=== PATIENT | female | born 1955 | race American Indian/Alaskan Native ===

== ENCOUNTER 2016-06-18 09:30 | Outpatient (CLI) | payer BC ==
[2016-06-18] MEDS ORDERED: NACL ONE ×2 (10:40→11:49)
--- NOTE | 2016-06-19 09:47 | Cat Scan Report ---
CT ABDOMEN WITH AND WITHOUT CONTRAST HISTORY: Hepatitis C, elevated liver function tests. TECHNIQUE: Helical CT before and after IV contrast. Triple phase liver protocol. Sagittal and coronal reformatted images. FINDINGS: Correlation is made with a right upper quadrant ultrasound performed 12/27/15. Sclerotic changes in the liver are also identified on CT. There is mild diffuse surface nodularity and mild enlargement of the left hepatic lobe. There is no evidence for abnormal enhancement within the liver following IV contrast. Portal venous system and hepatic veins are patent. The spleen is normal size and contour measuring 11.8 cm. No varicosities or ascites are appreciated. Two gallstones are noted within the gallbladder. No biliary dilatation or inflammation. The pancreas is normal in size and contour. There are rounded calcifications in the vicinity of the pancreatic tail or splenic hilum. It is unclear if this represents a small pseudocyst or a splenic artery aneurysm. Overall it has a benign appearance. This appears grossly unchanged since the MR abdomen with and without contrast performed in 2011. The kidneys, adrenal glands, aorta, bowel and visualized bowel loops are unremarkable. No bulky adenopathy, free air or acute inflammation. IMPRESSION: Mild to moderate cirrhotic changes in the liver. No suspicious liver masses appreciated. No change in the complex cystic lesion near the pancreatic tail or splenic hilum. 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 Cholelithiasis.
== END 2016-06-18 09:31 | disposition home or self-care (01) ==
LOC: CT 09:30
PROVIDERS: ATTEND Internal Medicine Gastroenterology
DX: B19.20 Unspecified viral hepatitis C without hepatic coma (principal); K74.60 Unspecified cirrhosis of liver; K80.20 Calculus of gallbladder without cholecystitis without obstruction
CPT/HCPCS: 74170; Q9967

== ENCOUNTER 2016-07-16 11:58 | Outpatient (CLI) | payer BC ==
[2016-07-16 12:28] LABS: Hemoglobin 13.1 gm/dl (10.1-14.3); Mean Corpuscular HGB Conc 32 % (30-34); Mean Corpuscular Hemoglobin 27 pg (28-32); Mean Corpuscular Volume 84 fl (79-97); Platelet Count 170 K/mm3 (140-440); Red Blood Count 4.87 M/mm3 (3.65-5.03); Red Cell Distribution Width 14.7 % (13.2-15.2); White Blood Count 9.2 K/mm3 (4.5-11.0)
[2016-07-16 13:47] LABS: Potassium TNR mmol/L (3.6-5.0)
[2016-07-16 13:48] LABS: Alanine Aminotransferase TNR units/L (7-56)
[2016-07-16 13:49] LABS: Cholesterol TNR mg/dL (50-199); HDL Cholesterol TNR mg/dL (40-59); LDL Cholesterol,Direct TNR mg/dL (50-130); Triglycerides TNR mg/dL (2-149)
[2016-07-17 11:40] LABS: Anion Gap TNR mmol/L; BUN/Creatinine Ratio TNR; Blood Urea Nitrogen TNR mg/dL (7-17); Carbon Dioxide TNR mmol/L (22-30); Chloride TNR mmol/L (98-107)
[2016-07-17 11:41] LABS: Albumin TNR g/dL (3.9-5); Albumin/Globulin Ratio TNR %; Alkaline Phosphatase TNR units/L (35-129); Bilirubin,Total TNR mg/dL (0.1-1.2); Calcium TNR mg/dL (8.4-10.2); Glucose TNR mg/dL (65-100); Total Protein TNR g/dL (6.3-8.2)
[2016-07-17 11:46] LABS: Sodium TNR mmol/L (137-145)
== END 2016-07-16 11:59 | disposition home or self-care (01) ==
LOC: LAB 11:58
PROVIDERS: ATTEND Internal Medicine
DX: E11.65 Type 2 diabetes mellitus with hyperglycemia (principal)
CPT/HCPCS: 36415; 80053; 80061; 83036; 84443; 85027

== ENCOUNTER 2016-12-06 08:49 | Inpatient (IN) | payer BC ==
[2016-12-06 09:30] LABS: Basophils % (Auto) 0.5 % (0.0-1.8); Eosinophils % (Auto) 2.3 % (0.0-4.3); Hematocrit 35.8 % (30.3-42.9); Hemoglobin 11.8 gm/dl (10.1-14.3); Mean Corpuscular HGB Conc 33 % (30-34); Mean Corpuscular Hemoglobin 27 pg (28-32); Mean Corpuscular Volume 82 fl (79-97); Platelet Count 175 K/mm3 (140-440); Red Blood Count 4.36 M/mm3 (3.65-5.03); Red Cell Distribution Width 14.5 % (13.2-15.2); White Blood Count 9.2 K/mm3 (4.5-11.0)
[2016-12-06 09:46] LABS: Anion Gap 19 mmol/L; BUN/Creatinine Ratio 18.75; Blood Urea Nitrogen 15 mg/dL (7-17); Calcium 9.1 mg/dL (8.4-10.2); Carbon Dioxide 21 mmol/L (22-30); Chloride 102.8 mmol/L (98-107); Glucose 117 mg/dL (65-100); Potassium 4.5 mmol/L (3.6-5.0); Sodium 138 mmol/L (137-145)
--- NOTE | 2016-12-06 11:21 | Emergency Department Report ---
ED Chest Pain HPI - General Chief Complaint: Chest Pain Stated Complaint: CHEST PAIN/ORLIN Time Seen by Provider: 12/06/16 10:51 Source: patient Mode of arrival: Ambulatory Limitations: No Limitations - History of Present Illness Initial Comments: This is a 60 year-old female presents to the emergency department from home with complaint of a left-sided chest pain and some shortness of breath. This been going on and off for the past week but this morning it was worse than usual so she came in to be seen. She has a history of noninsulin-dependent diabetes and hypertension. Primary care physician is Dr. Fulton. She did not take anything for her symptoms prior to presentation. No recent travel or sick contacts at home. She denies tobacco or illicit drug use or abuse. She says she has had a negative stress test in the past but it is been many years. Severity scale (0 -10): 4 - Related Data Home Medications Medication Instructions Recorded Confirmed Last Taken Losartan [Cozaar] 50 mg PO QDAY 12/06/16 12/06/16 12/05/16 Metformin HCl [Glucophage] 1,000 mg PO BID 12/06/16 12/06/16 12/05/16 metFORMIN [Glucophage] 500 mg PO QPM 12/06/16 12/06/16 12/05/16 Previous Rx's Medication Instructions Recorded Last Taken Type amLODIPine 5 mg PO DAILY #30 01/14/15 12/05/16 Rx Allergies Allergy/AdvReac Type Severity Reaction Status Date / Time Penicillins Allergy Hives Unverified 12/16/13 07:21 Heart Score - HEART Score History: Slightly suspicious EKG: Normal Age: 45-65 Risk factors: 1-2 risk factors Troponin: < normal limit HEART Score: 2 - Critical Actions Critical Actions: 0-3 pts:0.9-1.7%risk of adverse cardiac event.Candidate for discharge ED Review of Systems ROS: Stated complaint: CHEST PAIN/ORLIN Other details as noted in HPI Comment: All other systems reviewed and negative Constitutional: denies: chills, fever Eyes: denies: eye pain, eye discharge, vision change ENT: denies: ear pain, throat pain Respiratory: shortness of breath. denies: cough Cardiovascular: chest pain. denies: palpitations Gastrointestinal: denies: abdominal pain, nausea, diarrhea Genitourinary: denies: urgency, dysuria, discharge Musculoskeletal: denies: back pain, joint swelling, arthralgia Skin: denies: rash, lesions Neurological: denies: headache, weakness, paresthesias ED Past Medical Hx - Past Medical History Previous Medical History?: Yes Hx Hypertension: Yes Hx Diabetes: Yes - Surgical History Past Surgical History?: No - Social History Smoking Status: Current Every Day Smoker Substance Use Type: None - Medications Home Medications: Home Medications Medication Instructions Recorded Confirmed Last Taken Type amLODIPine 5 mg PO DAILY #30 01/14/15 12/06/16 12/05/16 Rx Losartan [Cozaar] 50 mg PO QDAY 12/06/16 12/06/16 12/05/16 History Metformin HCl [Glucophage] 1,000 mg PO BID 12/06/16 12/06/16 12/05/16 History metFORMIN [Glucophage] 500 mg PO QPM 12/06/16 12/06/16 12/05/16 History ED Physical Exam - General Limitations: No Limitations - Other Other exam information: GENERAL: The patient is well-developed well-nourished. ENT: Normocephalic. Atraumatic. Patient has moist mucous membranes. EYES: Extraocular motions are intact. Pupils equal reactive to light bilaterally. No nystagmus. NECK: Supple. Trachea is mid line. CHEST/LUNGS: Clear to auscultation. There is no respiratory distress noted. HEART/CARDIOVASCULAR: Regular rhythm. Regular rate. There is no gallop rub or murmur. ABDOMEN: Abdomen is soft, nontender. Patient has normal bowel sounds. There is no abdominal distention. SKIN: Skin is warm and dry. NEURO: The patient is awake, alert, and oriented. The patient is cooperative. The patient has no sensory or motor deficits. The patient has normal speech. MUSCULOSKELETAL: There is no tenderness or deformity. There is no limitation range of motion. There is no evidence of acute injury. ED Course Vital Signs 12/06/16 12/06/16 12/06/16 09:03 10:52 10:59 Temperature 99.3 F Pulse Rate 74 65 Respiratory 20 13 Rate Blood Pressure 181/91 Blood Pressure 163/97 [Left] O2 Sat by Pulse 100 99 Oximetry 12/06/16 12/06/16 12/06/16 11:00 11:02 11:30 Temperature Pulse Rate 62 67 Respiratory 9 L 16 13 Rate Blood Pressure Blood Pressure [Left] O2 Sat by Pulse 100 100 Oximetry 12/06/16 12/06/16 12/06/16 12:00 12:30 12:56 Temperature Pulse Rate 67 57 L 61 Respiratory 10 L 16 9 L Rate Blood Pressure 165/73 Blood Pressure [Left] O2 Sat by Pulse 100 100 98 Oximetry 12/06/16 12/06/16 12/06/16 13:00 13:03 13:30 Temperature Pulse Rate 61 63 60 Respiratory 12 16 17 Rate Blood Pressure 175/125 175/125 Blood Pressure 165/97 [Left] O2 Sat by Pulse 97 100 100 Oximetry 12/06/16 12/06/16 12/06/16 14:00 14:30 15:00 Temperature Pulse Rate 69 57 L 61 Respiratory 17 14 16 Rate Blood Pressure 175/125 175/125 175/125 Blood Pressure [Left] O2 Sat by Pulse 99 100 100 Oximetry 12/06/16 12/06/16 16:24 16:25 Temperature Pulse Rate 72 72 Respiratory 16 Rate Blood Pressure 150/88 Blood Pressure 150/88 [Left] O2 Sat by Pulse 97 Oximetry LUCERO score - Lucero Score Age > 65: (0) No Aspirin use within the Past 7 Days: (0) No 3 or more CAD Risk Factors: (1) Yes 2 or more Angina events in past 24 hrs: (1) Yes Known CAD with more than 50% Stenosis: (0) No Elevated Cardiac Markers: (0) No ST Deviation Greater than 0.5mm: (0) No LUCERO Score: 2 ED Medical Decision Making - Lab Data Result diagrams: 12/06/16 09:11 12/06/16 09:11 - EKG Data -: EKG Interpreted by Me EKG shows normal: sinus rhythm, axis, intervals, QRS complexes, ST-T waves Rate: normal - EKG Data When compared to previous EKG there are: previous EKG unavailable Interpretation: normal EKG - Radiology Data Radiology results: image reviewed interpreted by me: Chest x-ray does not show any pleural effusion, obvious signs of pneumonia or any pneumothorax. No acute process noted. - Medical Decision Making 60-year-old female who has a history of hypertension, diabetes and hyperlipidemia presents with some intermittent midsternal to left-sided chest pains and shortness of breath. Negative troponins 2 this far. D-dimer was negative. Chest x-ray does not show any acute process. EKG did not show any signs of ST elevation CT. However the patient has not had a full cardiac workup including a stress test in many years and therefore will be admitted to the hospital for further evaluation and treatment and has been accepted for admission by the hospitalist, Dr. Alston. - Differential Diagnosis CT, costochondritis, PE, pneumonia Critical Care Time: No Critical care attestation.: If time is entered above; I have spent that time in minutes in the direct care of this critically ill patient, excluding procedure time. ED Disposition Clinical Impression: Hypertension Qualifiers: Hypertension type: essential hypertension Qualified Code(s): I10 - Essential ( primary) hypertension Chest pain Qualifiers: Chest pain type: unspecified Qualified Code(s): R07.9 - Chest pain, unspecified Disposition: DC-09 OP ADMIT IP TO THIS HOSP Is pt being admited?: Yes Condition: Stable Time of Disposition: 16:12
[2016-12-06] MEDS ORDERED: BABY ASPIRIN PO ONE (12:14)
--- NOTE | 2016-12-06 12:30 | XRay Report ---
CHEST ONE VIEW INDICATION: Chest pain. COMPARISON: None similar. FINDINGS: Portable, single, frontal chest radiograph demonstrates normal cardiomediastinal silhouette. Clear lungs. Thoracic spondylosis. Extrinsic EKG lead. CONCLUSION: No acute disease in the chest. Thank you for the opportunity to participate in this patient's care.
--- NOTE | 2016-12-06 13:55 | Admit Criteria Form ---
Admission Criteria Documentation: HYPERTENSION Clinical Indications for Admission to Inpatient Care ( wiyot/check or initial the applicable condition/criteria) Admission is indicated for 1 or more of the following(1)(2)(3)(4)(5)(6)(7)(8)(9) (10): [ ]I. Hypertensive emergency, with evidence of acute and progressing target organ disease as indicated by 1 or more of the following: [ ]a) Hypertensive encephalopathy (e.g., confusion, altered mental status) (11) [ ]b) Cerebral infarction [ ]c) Intracranial hemorrhage [ ]d) Myocardial ischemia or infarction [ ]e) Heart failure (eg. Pulmonary edema) [ ]f) Aortic dissection [ ]g) Increased creatinine (new) with reduction of more than 50% in estimated glomerular filtration rate from baseline [ ]h) Seizure [ ]i) Papilledema [ ]j) Retinal hemorrhage [ ]k) Microangiopathic hemolytic anemia [ ]l) Other significant finding secondary to hypertension [ ]II. Adrenergic or sympathomimetic crisis (e.g., severe hypertension due to pheochromocytoma crisis, cocaine, phencyclindine, or amphetamine intoxication, or clonidine withdrawal) [X ]III. Severe hypertension (SBP greater than 180 mmHg or DBP greater than 110 mmHg or greater than the 95th percentile for age, gender, and height in pediatric patients) that cannot be controlled (e.g., to SBP less than 160 mmHg and DBP less than 100 mmHg in adults) by treatment with oral medication in emergency department or observation care (12) Extended stay beyond goal length of staymay be needed for(21)(22): [ ]a) Persistent hypertensive encephalopathy [ ]b) Continuation of pulmonary edema [ ]c) Recurring or persistent severe hypertension [ ]d) Target organ damage (eg, angina, stroke, aortic dissection) The original [employer] content created by [employer] has been revised. The portions of the content which have been revised are identified through the use of italic text or in bold, and [employer] has neither reviewed nor approved the modified material. All other unmodified content is copyright [employer]. Please see references footnoted in the original [employer] edition 2016 Admission Criteria Met: Yes
[2016-12-06] MEDS ORDERED: MORPHINE IV ONE (16:11)
[2016-12-06] MEDS ORDERED: APRESOLINE IV ONE (16:11)
[2016-12-06] MEDS ORDERED: MILK OF MAGNESIA PO PRN (17:53)
[2016-12-06] MEDS ORDERED: DULCOLAX PR PRN (17:53)
[2016-12-06] MEDS ORDERED: ZOFRAN IV PRN (17:53)
[2016-12-06] MEDS ORDERED: TYLENOL PO PRN (17:53)
--- NOTE | 2016-12-06 17:53 | History and Physical Report ---
History of Present Illness Date of examination: 12/06/16 Date of admission: 12/06/16 16:13 Chief complaint: Chest pain since AM History of present illness: History of Present Illness This is a 60 year-old female presents to the emergency department from home with complaint of a left-sided chest pain and some shortness of breath. This been going on and off for the past week but this morning it was worse than usual so she came in to be seen. She has a history of noninsulin-dependent diabetes and hypertension. Primary care physician is Dr. Fulton. She did not take anything for her symptoms prior to presentation. No recent travel or sick contacts at home. She denies tobacco or illicit drug use or abuse. She says she has had a negative stress test in the past but it is been many years. Severity scale (0 -10): 4 - Related Data Home Medications Medication Instructions Recorded Confirmed Last Taken Losartan [Cozaar] 50 mg PO QDAY 12/06/16 12/06/16 12/05/16 Metformin HCl [Glucophage] 1,000 mg PO BID 12/06/16 12/06/16 12/05/16 metFORMIN [Glucophage] 500 mg PO QPM 12/06/16 12/06/16 12/05/16 Previous Rx's Medication Instructions Recorded Last Taken Type amLODIPine 5 mg PO DAILY #30 01/14/15 12/05/16 Rx Allergies Allergy/AdvReac Type Severity Reaction Status Date / Time Penicillins Allergy Hives Unverified 12/16/13 07:21 Heart Score - HEART Score History: Slightly suspicious EKG: Normal Age: 45-65 Risk factors: 1-2 risk factors Troponin: < normal limit HEART Score: 2 - Critical Actions Critical Actions: 0-3 pts:0.9-1.7%risk of adverse cardiac event.Candidate for discharge Review of Systems Stated complaint: CHEST PAIN/ORLIN Other details as noted in HPI Comment: All other systems reviewed and negative Constitutional: denies: chills, fever Eyes: denies: eye pain, eye discharge, vision change ENT: denies: ear pain, throat pain Respiratory: shortness of breath. denies: cough Cardiovascular: chest pain. denies: palpitations Gastrointestinal: denies: abdominal pain, nausea, diarrhea Genitourinary: denies: urgency, dysuria, discharge Musculoskeletal: denies: back pain, joint swelling, arthralgia Skin: denies: rash, lesions Neurological: denies: headache, weakness, paresthesias Past Medical Hx - Past Medical History Previous Medical History?: Yes Hx Hypertension: Yes Hx Diabetes: Yes - Surgical History Past Surgical History?: No - Social History Smoking Status: Current Every Day Smoker Substance Use Type: None - Medications Home Medications: Home Medications Medication Instructions Recorded Confirmed Last Taken Type amLODIPine 5 mg PO DAILY #30 01/14/15 12/06/16 12/05/16 Rx Losartan [Cozaar] 50 mg PO QDAY 12/06/16 12/06/16 12/05/16 History Metformin HCl [Glucophage] 1,000 mg PO BID 12/06/16 12/06/16 12/05/16 History metFORMIN [Glucophage] 500 mg PO QPM 12/06/16 12/06/16 12/05/16 History Medications and Allergies Allergies Allergy/AdvReac Type Severity Reaction Status Date / Time Penicillins Allergy Hives Unverified 12/16/13 07:21 Home Medications Medication Instructions Recorded Confirmed Last Taken Type amLODIPine 5 mg PO DAILY #30 01/14/15 12/06/16 12/05/16 Rx Losartan [Cozaar] 50 mg PO QDAY 12/06/16 12/06/16 12/05/16 History Metformin HCl [Glucophage] 1,000 mg PO BID 12/06/16 12/06/16 12/05/16 History metFORMIN [Glucophage] 500 mg PO QPM 12/06/16 12/06/16 12/05/16 History Active Meds: Active Medications Heparin Sodium (Porcine) (Heparin) 5,000 unit SUB-Q Q8HR SUE Exam - Constitutional Vitals: Temp Pulse Resp BP Pulse Ox 99.3 F 73 20 180/87 98 12/06/16 09:03 12/06/16 17:37 12/06/16 17:24 12/06/16 17:24 12/06/16 17:24 General appearance: Present: no acute distress, well-nourished - EENT Eyes: Present: PERRL ENT: hearing intact, clear oral mucosa - Neck Neck: Present: supple, normal ROM - Respiratory Respiratory effort: normal Respiratory: bilateral: CTA - Cardiovascular Heart rate: 76 Rhythm: regular Heart Sounds: Present: S1 & S2. Absent: rub, click - Extremities Extremities: no ischemia, pulses intact, pulses symmetrical, No edema Peripheral Pulses: within normal limits - Abdominal General gastrointestinal: Present: soft, non-tender, non-distended, normal bowel sounds Female genitourinary: Present: normal - Rectal Rectal Exam: deferred - Integumentary Integumentary: Present: clear, warm, dry - Musculoskeletal Musculoskeletal: gait normal, strength equal bilaterally - Psychiatric Psychiatric: appropriate mood/affect, intact judgment & insight - Neurologic Neurologic: CNII-XII intact, moves all extremities - Allied Health Allied health notes reviewed: nursing, case management Results - Labs CBC & Chem 7: 12/07/16 05:17 12/07/16 05:17 Labs: Laboratory Last Values WBC 9.2 K/mm3 (4.5-11.0) 12/06/16 09:11 RBC 4.36 M/mm3 (3.65-5.03) 12/06/16 09:11 Hgb 11.8 gm/dl (10.1-14.3) 12/06/16 09:11 Hct 35.8 % (30.3-42.9) 12/06/16 09:11 MCV 82 fl (79-97) 12/06/16 09:11 MCH 27 pg (28-32) L 12/06/16 09:11 MCHC 33 % (30-34) 12/06/16 09:11 RDW 14.5 % (13.2-15.2) 12/06/16 09:11 Plt Count 175 K/mm3 (140-440) 12/06/16 09:11 Lymph % (Auto) 38.7 % (13.4-35.0) H 12/06/16 09:11 Towns % (Auto) 6.8 % (0.0-7.3) 12/06/16 09:11 Eos % (Auto) 2.3 % (0.0-4.3) 12/06/16 09:11 Baso % (Auto) 0.5 % (0.0-1.8) 12/06/16 09:11 Lymph # 3.6 K/mm3 (1.2-5.4) 12/06/16 09:11 Towns # 0.6 K/mm3 (0.0-0.8) 12/06/16 09:11 Eos # 0.2 K/mm3 (0.0-0.4) 12/06/16 09:11 Baso # 0.0 K/mm3 (0.0-0.1) 12/06/16 09:11 Seg Neutrophils % 51.7 % (40.0-70.0) 12/06/16 09:11 Seg Neutrophils # 4.8 K/mm3 (1.8-7.7) 12/06/16 09:11 D-Dimer 220.23 ng/mlDDU (0-234) 12/06/16 12:27 Sodium 138 mmol/L (137-145) 12/06/16 09:11 Potassium 4.5 mmol/L (3.6-5.0) 12/06/16 09:11 Chloride 102.8 mmol/L (98-107) 12/06/16 09:11 Carbon Dioxide 21 mmol/L (22-30) L 12/06/16 09:11 Anion Gap 19 mmol/L 12/06/16 09:11 BUN 15 mg/dL (7-17) 12/06/16 09:11 Creatinine 0.8 mg/dL (0.7-1.2) 12/06/16 09:11 Estimated GFR > 60 ml/min 12/06/16 09:11 BUN/Creatinine Ratio 18.75 % 12/06/16 09:11 Glucose 117 mg/dL (65-100) H 12/06/16 09:11 Calcium 9.1 mg/dL (8.4-10.2) 12/06/16 09:11 Troponin T < 0.010 ng/mL (0.00-0.029) 12/06/16 15:01 Short CBC 12/07/16 Range/Units 05:17 WBC 7.6 (4.5-11.0) K/mm3 Hgb 11.0 (10.1-14.3) gm/dl Hct 34.0 (30.3-42.9) % Plt Count 148 (140-440) K/mm3 BMP 12/07/16 05:17 Sodium 137 Potassium 4.5 Chloride 102.9 Carbon Dioxide 19 L BUN 15 Creatinine 0.7 Glucose 126 H Calcium 8.7 Cardiac Enzymes 12/06/16 12/06/16 12/07/16 Range/Units 15:01 19:35 00:42 Total Creatine Kinase 98 89 (30-135) units/L CK-MB (CK-2) 1.3 1.3 (0.0-4.0) ng/mL Troponin T < 0.010 < 0.010 < 0.010 (0.00-0.029) ng/mL Liver Function 12/07/16 Range/Units 05:17 Total Bilirubin 0.20 (0.1-1.2) mg/dL AST 18 (5-40) units/L ALT < 5 L (7-56) units/L Alkaline Phosphatase 80 (35-129) units/L Albumin 3.5 L (3.9-5) g/dL - Imaging and Cardiology EKG: report reviewed Chest x-ray: report reviewed Assessment and Plan Advance Directives: Yes (Full code) VTE prophylaxis?: Chemical Plan of care discussed with patient/family: Yes - Patient Problems (1) ACS (acute coronary syndrome) Current Visit: Yes Status: Acute Plan to address problem: Serial CE's and Lexiscan in AM (2) Hypertension Current Visit: Yes Status: Chronic Qualifiers: Hypertension type: essential hypertension Qualified Code(s): I10 - Essential (primary) hypertension Plan to address problem: Cont Antihypertensives (3) T2DM (type 2 diabetes mellitus) Current Visit: Yes Status: Chronic Qualifiers: Diabetes mellitus complication status: without complication Diabetes mellitus complication detail: D Diabetic retinopathy severity: D Proliferative retinopathy type: P Diabetes mellitus macular edema: D Diabetes mellitus intermediate designer insulin use: D Laterality: L Chronic kidney disease stage: C Plan to address problem: Cont Metformin 1000mg po bid and coverage (4) DVT prophylaxis Current Visit: Yes Status: Acute Plan to address problem: on Heparin
[2016-12-06] MEDS ORDERED: D5NS 1,000 ML IV SCH (18:00)
[2016-12-06 20:26] LABS: Creatine Kinase MB 1.3 ng/mL (0.0-4.0)
[2016-12-06 20:27] LABS: Creatine Kinase 98 units/L (30-135)
[2016-12-06] MEDS: PEPCID IV SCH (21:30)
[2016-12-06] MEDS: HEPARIN SUB-Q SCH (21:30)
[2016-12-07 01:33] LABS: Creatine Kinase MB 1.3 ng/mL (0.0-4.0)
[2016-12-07 01:35] LABS: Creatine Kinase 89 units/L (30-135)
[2016-12-07] MEDS: HEPARIN SUB-Q SCH ×2 (05:34→14:30)
[2016-12-07 06:23] LABS: Mean Corpuscular HGB Conc 32 % (30-34); Mean Corpuscular Hemoglobin 27 pg (28-32); Mean Corpuscular Volume 83 fl (79-97); Platelet Count 148 K/mm3 (140-440); Red Blood Count 4.08 M/mm3 (3.65-5.03); Red Cell Distribution Width 14.5 % (13.2-15.2); White Blood Count 7.6 K/mm3 (4.5-11.0)
[2016-12-07 06:29] LABS: Albumin 3.5 g/dL (3.9-5); Albumin/Globulin Ratio 0.8 %; Alkaline Phosphatase 80 units/L (35-129); Anion Gap 20 mmol/L; BUN/Creatinine Ratio 21.42; Blood Urea Nitrogen 15 mg/dL (7-17); Calcium 8.7 mg/dL (8.4-10.2); Carbon Dioxide 19 mmol/L (22-30); Chloride 102.9 mmol/L (98-107); Glucose 126 mg/dL (65-100); Potassium 4.5 mmol/L (3.6-5.0); Sodium 137 mmol/L (137-145); Total Protein 8.1 g/dL (6.3-8.2)
[2016-12-07 06:35] LABS: Alanine Aminotransferase < 5 units/L (7-56)
[2016-12-07 07:10] LABS: Basophils % (Manual) 0 % (0.0-1.8); Blastocytes % (Manual) 0 %
[2016-12-07 07:11] LABS: Diff Status Complete; Platelet Estimate Consistent w Auto; RBC Morphology Normal
[2016-12-07] MEDS ORDERED: LEXISCAN IV ONE ×2 (09:13→09:18)
[2016-12-07] MEDS: PEPCID IV SCH (11:09)
[2016-12-07 13:05] VITALS: BP 131/69
--- NOTE | 2016-12-07 14:48 | Discharge Summary ---
Providers - Providers Date of Admission: 12/06/16 16:13 Date of discharge: 12/07/16 Attending physician: KEN Butler Primary care physician: [employer] Hospitalization Condition: Stable Hospital course: See H/p-.Lexiscan negative Disposition: DC-01 TO HOME OR SELFCARE - Discharge Diagnoses (1) ACS (acute coronary syndrome) Status: Acute Comment: CE's negative and lexiscan negative (2) Hypertension Status: Chronic Qualifiers: Hypertension type: essential hypertension Qualified Code(s): I10 - Essential (primary) hypertension Comment: Cont antihypertensives (3) T2DM (type 2 diabetes mellitus) Status: Chronic Qualifiers: Diabetes mellitus complication status: without complication Diabetes mellitus complication detail: D Diabetic retinopathy severity: D Proliferative retinopathy type: P Diabetes mellitus macular edema: D Diabetes mellitus halfway insulin use: D Laterality: L Chronic kidney disease stage: C Comment: cont Metformin 1000 mg po Bid (4) DVT prophylaxis Status: Acute Comment: Lovenox 40 mg sq qd Core Measure Documentation - Palliative Care Palliative Care/ Comfort Measures: Not Applicable - Core Measures Any of the following diagnoses?: none Exam - Constitutional Vitals: Temp Pulse Resp BP Pulse Ox 98.6 F 68 20 131/69 98 12/07/16 12:00 12/07/16 12:00 12/07/16 12:00 12/07/16 12:00 12/07/16 12:00 General appearance: Present: no acute distress, well-nourished - EENT Eyes: Present: PERRL ENT: hearing intact, clear oral mucosa - Neck Neck: Present: supple, normal ROM - Respiratory Respiratory effort: normal Respiratory: bilateral: CTA - Cardiovascular Heart Sounds: Present: S1 & S2. Absent: rub, click - Extremities Extremities: pulses symmetrical, No edema Peripheral Pulses: within normal limits - Abdominal General gastrointestinal: Present: soft, non-tender, non-distended, normal bowel sounds Female genitourinary: Present: normal - Integumentary Integumentary: Present: clear, warm, dry - Musculoskeletal Musculoskeletal: gait normal, strength equal bilaterally - Psychiatric Psychiatric: appropriate mood/affect, intact judgment & insight - Neurologic Neurologic: CNII-XII intact, moves all extremities Plan Activity: no restrictions Weight Bearing Status: Weight Bear as Tolerated Diet: low fat, low cholesterol Follow up with: PRIMARY CARE, [Primary Care Provider] - 3-5 Days
--- NOTE | 2016-12-08 01:07 | Treadmill Report ---
ORDERING PHYSICIAN: Dell Alston MD INDICATION FOR PROCEDURE: Chest pain. FINDINGS: There is no scintigraphic evidence of myocardial ischemia. The left ventricle is normal in size and systolic function. The left ventricular ejection fraction is measured at 68%. Normal wall motion and wall thickening is noted on gated imaging. CONCLUSION: Normal perfusion scan. JOB# [id number] AKLucien/NTS
== END 2016-12-07 15:40 | disposition home or self-care (01) | DRG 311 ==
LOC: ED 08:49 → 4A 16:13
PROVIDERS: ADMIT Internal Medicine; ATTEND Internal Medicine
DX: I24.9 Acute ischemic heart disease, unspecified (principal); I10 Essential (primary) hypertension; E11.9 Type 2 diabetes mellitus without complications; F17.200 Nicotine dependence, unspecified, uncomplicated; E78.5 Hyperlipidemia, unspecified; Z79.899 Other long term (current) drug therapy; Z88.0 Allergy status to penicillin
CPT/HCPCS: 36415; 71010; 78452; 80048; 80053; 82550; 82553; 82962; 84484; 85007; 85025; 85379; 93005; 93010; 93017; 94760; A9502; J1644; J2270; J2785

== ENCOUNTER 2017-06-19 09:01 | Outpatient (CLI) | payer BC ==
--- NOTE | 2017-06-21 08:30 | Magnetic Resonance Report ---
MRI UPPER EXTREMITY JOINT RIGHT WITHOUT CONTRAST HISTORY: Pain in right wrist. TECHNIQUE: Multisequence, multiplanar MRI without contrast. Fat suppression technique was utilized. COMPARISON: Right wrist films dated 01/14/15. FINDINGS: The T2 weighted sequences demonstrate a mild degree of fluid in the tendon sheath of the abductor pollicis longus. The abductor pollicis longus tendon appears mildly thickened but no evidence for large tear or rupture. The remaining musculotendinous structures throughout the right wrist are normal size and signal intensity. The carpal tunnel and contents appear unremarkable. The bone marrow signal is within normal limits. No evidence for fracture, malalignment or bone marrow edema. Arthrogram was not performed but no ligamentous injury is detected. Mild to moderate osteoarthritic changes are identified at the radiocarpal joint and carpal bone articulations. There are a few scattered subchondral cysts and joint space narrowing. No significant joint effusion. The triangular fibrocartilage complex is poorly imaged but appears grossly intact. IMPRESSION: Abductor pollicis longus tendinitis. Mild to moderate osteoarthritic changes.
== END 2017-06-19 09:02 | disposition home or self-care (01) ==
LOC: MRI 09:01
PROVIDERS: ATTEND Orthopaedic Surgery
DX: M19.031 Primary osteoarthritis, right wrist (principal); M25.831 Other specified joint disorders, right wrist; M77.8 Other enthesopathies, not elsewhere classified